=== PATIENT | male | born 1995 | race Caucasian/White ===

== ENCOUNTER 2019-08-14 09:06 | Emergency (ER) | payer SELFPAY ==
[2019-08-14 09:18] VITALS: BP 131/80; PULSE 68; TEMP 98.2; BMI 30.5
--- NOTE | 2019-08-14 09:53 | PDOC ---
History of Present Illness - General Chief Complaint: Injury Stated Complaint: Laceration Time Seen by Provider: 08/14/19 09:18 History Source: Patient Exam Limitations: No Limitations Past History - Travel Traveled outside of the country in the last 30 days: No Close contact w/someone who was outside of country & ill: No - Past Medical History Allergies/Adverse Reactions: Allergies Allergy/AdvReac Type Severity Reaction Status Date / Time No Known Allergies Allergy Verified 08/14/19 09:18 Home Medications: Ambulatory Orders NK [No Known Home Medication] 08/14/19 COPD: No - Psycho Social/Smoking Cessation Hx Smoking History: Never smoked Information on smoking cessation initiated: No Hx Alcohol Use: No Drug/Substance Use Hx: No Review of Systems - Review of Systems Able to Perform ROS?: Yes Comments:: 08/14/19 09:48 CONSTITUTIONAL: Absent: fever, chills, diaphoresis, generalized weakness, malaise, loss of appetite MUSCULOSKELETAL: Absent: myalgia, arthralgia, joint swelling SKIN: Present: laceration to L hand Absent: rash, itching, pallor NEUROLOGIC: Absent: headache, focal weakness or paresthesias, dizziness, unsteady gait, seizure, mental status changes, bladder or bowel incontinence PSYCHIATRIC: Absent: anxiety, depression, suicidal or homicidal ideation, hallucinations. Is the patient limited Tongan proficient: No *Physical Exam - Vital Signs Last Vital Signs Temp Pulse Resp BP Pulse Ox 98.2 F 68 18 131/80 99 08/14/19 09:15 08/14/19 09:15 08/14/19 09:15 08/14/19 09:15 08/14/19 09:15 - Physical Exam 08/14/19 09:49 GENERAL: The patient is awake, alert, and fully oriented, in no acute distress. HEAD: Normal with no signs of trauma. EYES: Pupils equal, round and reactive to light, extraocular movements intact, sclera anicteric, conjunctiva clear. EXTREMITIES: Normal range of motion, no edema. NEUROLOGICAL: Normal speech, normal gait. PSYCH: Normal mood, normal affect. SKIN: 2 cm laceration to the midline left palm in an elliptical shape, superficial. No foreign body identified. Bleeding is controlled. Warm, Dry, normal turgor, no rashes or lesions noted. Procedures - Laceration/Wound Repair Left Hand Wound Length: to 2.5 cm Wound Explored: clean, no foreign body present Wound's Depth, Shape: flap Irrigated w/ Saline: Yes Betadine Prep: Yes Anesthesia: 1% Lidocaine Amount of Anesthetic (ccs): 3 Wound Repaired With: Sutures Suture Size/Type: 4:0 Number of Sutures: 5 Layer Closure: No Sterile Dressing Applied: Yes Medical Decision Making - Medical Decision Making 08/14/19 09:50 The patient is a 23-year-old male with no past medical history who presents to the ER today for a laceration to his left hand. He states that he was working on the engine of his car when he sliced it on a piece of metal. He applied pressure and came to the emergency department. He states his tetanus is up-to- date. Denies numbness and tingling and weakness the affected extremity. Patient is right-hand dominant. A/P: Laceration On exam there is a 2 cm laceration to the midline left palm in elliptical fashion. No foreign bodies identified. Wound was cleaned under high-pressure normal saline. Wound was closed with 5 simple interrupted stitches with 4-0 nylon. Patient is able to move all fingers, can make a thumbs up, OK sign, with the left hand. We will discharge home with instructions to return in 7 days to have the stitches removed. I discussed the physical exam findings, ancillary test results and final diagnoses with the patient. I answered all of the patient's questions. The patient was satisfied with the care received and felt comfortable with the discharge plan and treatment plan. The Patient agrees to follow up with the primary care physician/specialist within 24-72 hours. Return precautions were given. Discharge - Discharge Information Problems reviewed: Yes Clinical Impression/Diagnosis: Laceration Condition: Stable Disposition: HOME - Admission No - Follow up/Referral Referrals: Josesito Wahl MD [Staff Physician] - - Patient Discharge Instructions Patient Printed Discharge Instructions: DI for Laceration Repair Additional Instructions: You had your cut fixed today with stitches. Please return in 7 days to have your stitches removed. Keep the hand dry for 24 hours. Avoid soaking the hand. Keep it dry when showering. Please keep the area clean and pat dry. You may use a thin layer of bacitracin once a day. You may take Tylenol or Motrin as needed for pain. Follow the dosing instructions on the bottle. Return to the emergency department sooner if you have area of redness around the site, purulent drainage, fevers, or have any changes in your symptoms. - Post Discharge Activity
== END 2019-08-14 10:02 | disposition home or self-care (01) ==
LOC: JERFT 09:06
PROC: 0HQGXZZ Repair Left Hand Skin, External Approach (ICD-10-PCS; principal; 2019-08-14)
DX: S61.412A Laceration without foreign body of left hand, initial encounter (principal); W26.8XXA Contact with other sharp object(s), not elsewhere classified, initial encounter; Y93.89 Activity, other specified; Y92.89 Other specified places as the place of occurrence of the external cause
CPT/HCPCS: 99283-25